=== PATIENT | female | born 1985 | race Caucasian/White ===

== ENCOUNTER 2023-09-30 10:25 | Emergency (ER) | payer OTHER, SELFPAY ==
[2023-09-30] VITALS (24 sets, daily range): BP systolic 104–129; BP diastolic 65–88; PULSE 68–99; RESP 10–23; TEMP 36.6; O2SAT 99–100
--- NOTE | ~2023-09-30 | CT_ITS ---
CT OF right wrist EXAMINATION: CT wrist RT wo con DATE: 09/30/2023 15:46 INDICATION: Right wrist fracture TECHNIQUE: Computed tomography (CT) of the right wrist was performed without intravenous contrast. Au tomated exposure control and iterative reconstruction technique were employed. The dose-length produc t was 275.22 mGy-cm. COMPARISON: 09/30/2023 FINDINGS: Limitations: None Bones: Comminuted intra-articular distal right radial fracture, with one shaft width posterior displa cement, 5 mm lateral displacement, and mild impaction. No significant articular surface gap. Displace d, mildly comminuted ulnar styloid fracture. There are no erosive or destructive bony lesions. Soft Tissues: Soft tissue swelling about the fracture site. No evidence of mass or fluid collection. The flexor and extensor tendons appear grossly intact. Fluid: Moderate wrist joint fluid. Fluid within the flexor sheath. IMPRESSION: Comminuted intra-articular distal right radial fracture with one shaft width posterior displacement, mild lateral placement, and mild impaction. Displaced, mildly comminuted ulnar styloid fracture. Reviewed, dictated and finalized at location K. [employer] OFFICER IMPRESSION: Comminuted intra-articular distal right radial fracture with one shaft width po sterior displacement, mild lateral placement, and mild impaction. Displaced, mildly comminuted ulnar styloid fracture.
--- NOTE | ~2023-09-30 | XR_ITS ---
Right elbow Technique: AP, oblique, and lateral views were obtained. Clinical History: Pain Findings: No acute fracture or dislocation is seen. Osseous alignment is anatomic. Joint spaces are p reserved. There is no displacement of the fat pads, and soft tissues are unremarkable. Impression: Unremarkable radiographs. Reviewed, dictated and finalized at location . Y COOKER HELPER Impression: Unremarkable radiographs.
--- NOTE | ~2023-09-30 | XR_ITS ---
Right wrist and right forearm Technique: PA, oblique, lateral, and ulnar deviation views of the right wrist were obtained. AP and l ateral views of the right forearm were obtained. Clinical History: Trauma Findings: There is a transverse, comminuted fracture of the distal radial metaphyseal region, with ma rked dorsal displacement by approximately 2.5 cm. There is significant posttraumatic positive ulnar v ariance, possible overriding of the radial fracture. No other fracture or dislocation seen. Remaining osseous structures and joint spaces are intact. Soft tissues are unremarkable. Impression: Transverse, comminuted fracture of the distal radial metaphyseal region, with marked dorsal displacem ent by approximately 2.5 cm. Reviewed, dictated and finalized at location M. HIATRIC TECHNICIAN ASSISTANT Impression: Transverse, comminuted fracture of the distal radial metaphyseal region, with m arked dorsal displacement by approximately 2.5 cm. Impression: Transverse, comminuted fracture of the distal radial metaphyseal region, with m arked dorsal displacement by approximately 2.5 cm.
--- NOTE | ~2023-09-30 | XR_ITS ---
EXAMINATION: XR wrist RT 2V DATE: 09/30/2023 12:55 INDICATION: Distal right radius fracture status post reduction. TECHNIQUE: 2 views of right wrist were obtained. COMPARISON: Right wrist radiographs at 10:52 AM FINDINGS: There is a comminuted fracture of distal radial metaphysis. The distal fracture fragment de monstrates impaction, 9 mm dorsal displacement, dorsal angulation, and 11 degrees radial angulation. There is 17 degrees dorsal tilt of the distal articular surface. There is an avulsion fracture of the ulnar styloid. Joint spaces are normal. IMPRESSION: 1. Comminuted fracture of distal radius with improvement in alignment. 2. Avulsion fracture of ulnar styloid. Reviewed, dictated and finalized at location A. T MIXER MACHINE
--- NOTE | 2023-09-30 11:10 | PC.NURSE ---
Report given to Maria YOON, all questions answered
--- NOTE | 2023-09-30 11:31 | ED.UPPEXIN ---
HPI - Extremity Injury (Upper) General Chief Complaint: Extremity Injury, Upper Stated Complaint: wrist injury and deformity Time Seen by Provider: 09/30/23 11:31 Source: patient Mode of arrival: ambulatory Limitations: no limitations History of Present Illness HPI narrative: 38 YEARS OLD WHITE FEMALE TRIPPED AND FELL AT HOME LANDING ON THE RIGHT HAND CAUSING DEFORMITY AND PAIN AT THE RIGHT WRIST PRIOR TO ARRIVAL. SHE DENIES OTHER INJURIES. Related Data Allergies Allergy/AdvReac Type Severity Reaction Status Date / Time No Known Allergies Allergy Verified 09/30/23 10:47 Review of Systems Review of Systems: All systems reviewed & are unremarkable except as noted in HPI and below Exam Narrative: GENERAL APPEARANCE: WELL-DEVELOPED, WELL-NOURISHED SKIN: NORMAL COLOR HEAD: NORMOCEPHALIC, NONTRAUMATIC EYES: CLEAR CONJUNCTIVA ENT: OROPHARYNX NORMAL, EARS NORMAL, NOSE NORMAL NECK: SUPPLE, NONTENDER CHEST AND RESPIRATORY: AIRWAY PATENT, NO RESPIRATORY DISTRESS, NO ACCESSORY MUSCLE USE HEART: REGULAR RATE/RHYTHM ABDOMEN: SOFT, NONTENDER, NO ORGANOMEGALY, QUIET BOWEL SOUNDS VASCULAR: NORMAL PERIPHERAL PULSES, NORMAL CAPILLARY REFILL. 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 Date: 09/30/23 Time: 15:10 Vital Signs Vital signs: Vital Signs Temperature 36.6 C 09/30/23 10:35 Pulse Rate 68 09/30/23 10:35 Respiratory Rate 17 09/30/23 10:35 Blood Pressure 104/65 09/30/23 10:35 Pulse Oximetry 99 09/30/23 10:35 Oxygen Delivery Room Air 09/30/23 10:35 Temperature 36.6 C 09/30/23 10:35 Pulse Rate 90 09/30/23 16:08 Respiratory Rate 17 09/30/23 16:08 Blood Pressure 121/76 09/30/23 15:15 Pulse Oximetry 100 09/30/23 15:45 Oxygen Delivery Room Air 09/30/23 10:35 Procedures Orthopedic Fracture Reduction Fracture #1: Fracture Reduction date: 09/30/23 Fracture Reduction time: 14:10 Time Out Performed: Yes (20) Side: right Fracture Reduction Location: radius and ulna Analgesia: hematoma block Pre-Procedure Neuro Vascular Exam: normal Technique: direct manipulation and traction/counter-traction Post Reduction X-rays Demonstrate: acceptable reduction Post-reduction neuro exam: intact Post-reduction vascular exam: intact Splint Applied: Yes Patient Tolerated Procedure: well MDM - Extremity Injury (Upper) MDM Narrative Medical decision making narrative: PATIENT PRESENTS WITH DEFORMITY OF THE RIGHT WRIST AFTER A FALL PRIOR TO ARRIVAL PHYSICAL EXAMINATION ABOVE X-RAY SHOWED COMMINUTED FRACTURE DISTAL RADIUS AND ULNA OF THE RIGHT WRIST, HEMATOMA BLOCK, CLOSED REDUCTION, POST REDUCTION X-RAY SHOWED GOOD ALIGNMENT. Differential Diagnosis Differential diagnosis: Likely other (FRACTURE RIGHT WRIST) Imaging Data Radiologist's impression: Impressions Elbow X-Ray 09/30/23 11:01 Impression: Unremarkable radiographs. Forearm X-Ray 09/30/23 11:01 Impression: Transverse, comminuted fracture of the distal radial metaphyseal region, with marked dorsal displacement by approximately 2.5 cm. Wrist X-Ray 09/30/23 11:01 Impression: Transverse, comminuted f
[2023-09-30] MEDS: fentaNYL CITRATE INJ (*CRX) 100 MCG/2 ML VIAL 25 MCG IV PUSH ×2 (12:13→12:36)
[2023-09-30] MEDS: ONDANSETRON INJ 4 MG/2 ML VIAL IV PUSH ×2 (12:14→16:22)
[2023-09-30] MEDS: LIDOCAINE HCL 1% LOCAL INJ 10 ML VIAL (12:15)
[2023-09-30] MEDS: fentaNYL CITRATE INJ (*CRX) 250 MCG/5 ML VIAL 25 MCG IV PUSH (14:47)
== END 2023-09-30 16:28 | disposition home or self-care (01) ==
PROVIDERS: Emergency Provider Emergency Medicine
DX: S52.571A Other intraarticular fracture of lower end of right radius, initial encounter for closed fracture (principal); S52.611A Displaced fracture of right ulna styloid process, initial encounter for closed fracture; W01.0XXA Fall on same level from slipping, tripping and stumbling without subsequent striking against object, initial encounter
CPT/HCPCS: 25605; 25624; 73070; 73080; 73090; 73100; 73200; 96374; 96375; 96376; 99285; A4565; J2405; J3010